=== PATIENT | female | born 2000 | race Caucasian/White ===

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

== ENCOUNTER 2018-11-06 11:05 | Emergency (ER) | payer MEDICAID ==
[~2018-11-06] VITALS: Ht 167.6 cm; Wt 55.1 kg
[~2018-11-06 11:05] MED LIST changes: +HYDR-843 PO; -NAPR-260 PO; +ZOLP5TAB PO
[2018-11-06 11:08] VITALS: Ht 167.6 cm; Wt 55.1 kg
[2018-11-06] MEDS ORDERED: ONDANSETRON (ODT) 4 MG TAB ODT STA (11:57)
--- NOTE | 2018-11-06 12:01 | ERD ---
ER Documentation Chief Complaint Chief Complaint abdominal pain and vomiting this morning HPI 18-year-old patient, presents to the emergency department, complaining of 1 day with nausea and vomiting x3, associated with mild intermittent cramping abdominal pain. The patient denies fevers, no chills, no urinary symptoms. The patient consumes THC on a regular basis; lives in a assisted and is requesting to be admitted because the assisted is very filthy and dirty. ROS All systems reviewed and are negative except as per history of present illness. Medications Home Meds Active Scripts Ranitidine Hcl* (Zantac*) 150 Mg Tablet, 150 MG PO BID PRN for EPIGASTRIC PAIN, #12 TAB Prov:SALMA SALAZAR MD 11/06/18 Ondansetron Hcl* (Zofran*) 4 Mg Tablet, 4 MG PO Q8H PRN for NAUSEA AND/OR VOMITING, #12 TAB Prov:SALMA SALAZAR MD 11/06/18 Reported Medications Hydroxyzine Hcl* (Hydroxyzine Hcl*) 25 Mg Tablet, 25 MG PO, #30 TAB 01/07/17 Zolpidem Tartrate* (Ambien*) 5 Mg Tablet, 5 MG PO QHS PRN for INSOMNIA, #30 TAB 01/07/17 Allergies Allergies: Coded Allergies: fluoxetine (Verified Allergy, Severe, 01/07/17) hives PMhx/Soc History of Surgery: No Anesthesia Reaction: No 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) Hx Respiratory Disorders: Yes (bronchitis , asthma) Hx Cardiac Disorders: No Hx Psychiatric Problems: Yes (anxiety, depression) Hx Miscellaneous Medical Probl: No Hx Alcohol Use: Yes (rarely) Hx Substance Use: Yes (MARIJUANA) Hx Tobacco Use: No Smoking Status: Current some day smoker Physical Exam Vitals Vital Signs Date Temp Pulse Resp B/P (MAP) Pulse Ox O2 O2 Flow FiO2 Time Delivery Rate 11/06/18 98.7 98 16 107/68 98 Room Air 14:39 (81) 11/06/18 98.2 99 18 120/70 96 11:08 (87) Physical Exam Const: No acute distress Head: Atraumatic Eyes: Normal Conjunctiva ENT: Normal External Ears, Nose and Mouth. Neck: Full range of motion. No meningismus. Resp: Clear to auscultation bilaterally Cardio: Regular rate and rhythm, no murmurs Abd: Soft, non tender, non distended. Normal bowel sounds Skin: No petechiae or rashes Back: No midline or flank tenderness Ext: No cyanosis, or edema Neur: Awake and alert Psych: Normal Mood and Affect Results 24 hrs Laboratory Tests Test 11/06/18 12:21 11/06/18 12:22 Bedside Urine pH (LAB) 5.5 Bedside Urine Protein (LAB) 1+ Bedside Urine Glucose (UA) Negative Bedside Urine Ketones (LAB) Trace Bedside Urine Blood 3+ Bedside Urine Nitrite (LAB) Negative Bedside Urine Leukocyte Esterase (L Negative POC Beta HCG, Qualitative NEGATIVE Current Medications Medications Dose Sig/Solomon Start Time Status Last (Trade) Ordered Route PRN Stop Time Admin Dose Reason Admin Ondansetron 8 mg ONCE STAT 11/06/18 DC 11/06/18 HCl (Zofran ODT 11:57 12:12 Odt) 11/06/18 12:05 Procedures/MDM Physical exam unremarkable, patient in no distress, hydrated, adequate oral intake, abdomen, soft, nontender, no peritoneal signs. Differential diagnosis include but not limited to: gastrointestinal infection bacterial/viral, UTI, appendicitis, colitis, food poisoning, food intolerance. Low suspicion for acute abdomen Physical examination and clinical presentation consistent most likely with viral gastroenteritis. During the ED course the patient remained stable, overall improvement of the symptoms after receiving treatment in the emergency department with Zofran p.o. Clinical impression discussed with the patient who disagrees with management, actually, the patient wants to stay at the hospital for full workup; the patient was informed that at this time, there is no medical problems therefore he will be discharged. Some side effects of prescribed medications (headache, rash, nausea, vomiting, diarrhea, interactions with other medications) were reviewed. The patient requires a follow up with the primary care provider in the next 48h. If symptoms persist, worsen or new symptoms develop, then patient should return to the ED immediately. Disclaimer: Inadvertent spelling and grammatical errors are likely due to EHR/dictation software use and do not reflect on the overall quality of patient care. Also, please note that the electronic time recorded on this note does not necessarily reflect the actual time of the patient encounter. Departure Diagnosis: Primary Impression: Nausea & vomiting Condition: Stable Patient Instructions: Nausea and Vomiting-Adult Additional Instructions: Thank you very much for allowing us to participate in your care. Your health and safety is our top priority at [facility]. Call your primary care doctor TOMORROW for an appointment during the next 2-4 days and bring all the information and medications prescribed. Have prescriptions filled and follow precisely the directions on the label. If the symptoms get worse and your provider is unavailable, return to the Emergency Department immediately. SALMA SALAZAR MD Nov 06, 2018 12:01
[2018-11-06] MEDS ORDERED: RANI150T35 PO (14:33)
[2018-11-06] MEDS ORDERED: ONDA4TAB8 PO (14:33)
[2018-11-06 14:39] VITALS: BP 107/68; PULSE 98; RESP 16
== END 2018-11-06 14:44 | disposition home or self-care (01) ==
LOC: FTE 11:05
DX: R11.2 Nausea with vomiting, unspecified (principal); J45.909 Unspecified asthma, uncomplicated; F17.210 Nicotine dependence, cigarettes, uncomplicated
CPT/HCPCS: 81003; 81025; Z7502; Z7610; 99283